=== PATIENT | female | born 1950 | race Caucasian/White ===

== ENCOUNTER 2017-03-11 01:42 | Inpatient (IN) | payer MEDICARE, MEDICAID ==
[~2017-03-11] VITALS: Ht 157.5 cm; Wt 96.2 kg
[2017-03-11 02:16] LABS: BASOPHILS # (AUTO) 0.06 x10^3/uL (0-0.1); BASOPHILS % (AUTO) 1 % (0-1); EOSINOPHILS # (AUTO) 0.52 x10^3/uL (0-0.4); EOSINOPHILS % (AUTO) 6 % (1-7); LYMPHOCYTES % (AUTO) 45 % (22-44); MD NO; MEAN CORPUSCULAR HEMOGLOBIN 29.7 pg (27.0-34.8); MEAN CORPUSCULAR HGB CONC 33.5 g/dL (32.4-35.8); MEAN CORPUSCULAR VOLUME 88.7 fL (80-100); MEAN PLATELET VOLUME 10.5 fL (7.4-10.4); MONOCYTES # (AUTO) 0.68 x10^3/uL (0.2-0.8); MONOCYTES % (AUTO) 8 % (2-9); NEUTROPHILS # (AUTO) 3.71 x10^3/uL (1.8-6.8); NEUTROPHILS % (AUTO) 41 % (42-75); PLATELET COUNT 176 x10^3/uL (130-400); RED BLOOD COUNT 3.91 x10^6/uL (3.82-5.3); RED CELL DISTRIBUTION WIDTH 13.4 % (9.6-15.2)
[2017-03-11 02:25] LABS: ALANINE AMINOTRANSFERASE 25 U/L (12-78); ALBUMIN 3.5 g/dL (3.4-5.0); ANION GAP 10 mmol/L (5-15); CALCIUM 8.2 mg/dL (8.5-10.1); CHLORIDE 108 mmol/L (98-107); CREATININE 0.82 mg/dL (0.55-1.02)
[2017-03-11 02:29] LABS: ALKALINE PHOSPHATASE 80 U/L (45-117); BILIRUBIN,TOTAL 0.4 mg/dL (0.2-1.0); TOTAL PROTEIN 7.2 g/dL (6.4-8.2); TROPONIN I < 0.015 ng/mL (0.000-0.045)
[2017-03-11] MEDS ORDERED: LEVO200T5 PO (03:42)
[2017-03-11 04:28] VITALS: BP 133/81
[2017-03-11] MEDS ORDERED: SIMV40TA3 PO (04:47)
[2017-03-11] MEDS ORDERED: MELA1TAB PO (04:47)
[2017-03-11] MEDS ORDERED: LISI1TAB3 PO (04:47)
[2017-03-11] MEDS ORDERED: CHRO1TAB6 PO (04:47)
[2017-03-11] MEDS ORDERED: VALE100C PO (04:47)
[2017-03-11 04:56] VITALS: BP 133/81
[2017-03-11 07:11] VITALS: BP 109/69
[2017-03-11] MEDS ORDERED: POLYETHYLENE GLYCOL 17 GM PACKET PO PRN (07:30)
[2017-03-11] MEDS ORDERED: ENALAPRILAT 1.25 MG/ML, 2ML IVPush PRN (07:30)
[2017-03-11] MEDS ORDERED: ACETAMINOPHEN 325 MG TABLET PO PRN (07:30)
[2017-03-11] MEDS ORDERED: DOXYCYCLINE 100 MG in DEXTROSE 5% 250 ML IV SCH (07:30)
[2017-03-11] MEDS ORDERED: DOCUSATE 100 MG CAPSULE PO PRN (07:30)
[2017-03-11] MEDS ORDERED: BISACODYL 10 MG SUPP PR PRN (07:30)
[2017-03-11] MEDS ORDERED: ONDANSETRON 2MG/ML, 2ML IVPush PRN (07:30)
[2017-03-11 08:35] VITALS: BP 118/79
[2017-03-11] MEDS: CEFTRIAXONE PMX 1GM/50ML 50 ML IV SCH (08:51)
[2017-03-11] MEDS: LISINOPRIL 10 MG TABLET PO SCH (08:52)
[2017-03-11] MEDS: GUAIFENESIN ER 600 MG TABLET PO SCH ×2 (08:52→21:53)
[2017-03-11] MEDS: LEVOTHYROXINE 200 MCG TABLET PO SCH (08:52)
[2017-03-11] MEDS: HYDROCHLOROTHIAZIDE 12.5 MG CAPSULE PO SCH (08:52)
[2017-03-11] MEDS: SIMVASTATIN 40 MG TABLET PO SCH (08:52)
[2017-03-11 08:53] LABS: TROPONIN I < 0.015 ng/mL (0.000-0.045)
[2017-03-11] MEDS: SODIUM CHLORIDE 0.9% 1,000 ML IV SCH ×2 (08:53→17:13)
[2017-03-11 13:06] VITALS: BP 101/61
[2017-03-11 14:43] LABS: TROPONIN I < 0.015 ng/mL (0.000-0.045)
[2017-03-11 18:40] VITALS: BP 92/56
[2017-03-11 21:33] LABS: MICROSCOPIC NOT IND
[2017-03-11 21:39] LABS: CULTURE INDICATED? NO
[2017-03-11 21:47] LABS: AMPHETAMINE SCREEN, URINE Negative (Negative); BARBITURATE SCREEN, URINE Negative (Negative); BENZODIAZEPINE SCREEN, URINE Negative (Negative); CANNABINOID SCREEN, URINE Negative (Negative); COCAINE SCREEN, URINE Negative (Negative); METHADONE SCREEN, URINE Negative (Negative); OPIATE SCREEN, URINE Positive (Negative)
[2017-03-11] MEDS: DOXYCYCLINE 100MG TABLET PO SCH (21:53)
[2017-03-12 02:10] VITALS: BP 108/64
[2017-03-12 05:26] LABS: BASOPHILS # (AUTO) 0.07 x10^3/uL (0-0.1); BASOPHILS % (AUTO) 1 % (0-1); EOSINOPHILS # (AUTO) 0.39 x10^3/uL (0-0.4); EOSINOPHILS % (AUTO) 5 % (1-7); LYMPHOCYTES # (AUTO) 3.17 x10^3/uL (1-3.4); LYMPHOCYTES % (AUTO) 40 % (22-44); MD NO; MEAN CORPUSCULAR HEMOGLOBIN 29.7 pg (27.0-34.8); MEAN CORPUSCULAR HGB CONC 33.4 g/dL (32.4-35.8); MEAN CORPUSCULAR VOLUME 88.7 fL (80-100); MEAN PLATELET VOLUME 10.6 fL (7.4-10.4); MONOCYTES # (AUTO) 0.72 x10^3/uL (0.2-0.8); MONOCYTES % (AUTO) 9 % (2-9); NEUTROPHILS # (AUTO) 3.56 x10^3/uL (1.8-6.8); NEUTROPHILS % (AUTO) 45 % (42-75); PLATELET COUNT 178 x10^3/uL (130-400); RED BLOOD COUNT 3.97 x10^6/uL (3.82-5.3); RED CELL DISTRIBUTION WIDTH 13.6 % (9.6-15.2)
[2017-03-12 05:39] LABS: ANION GAP 7 mmol/L (5-15); CHLORIDE 109 mmol/L (98-107)
[2017-03-12 05:51] LABS: CHOL/HDL RATIO 4.6; CHOLESTEROL, TOTAL 198 mg/dL (140-239); HDL CHOL % 22 % (28-40); HDL CHOLESTEROL (DIRECT) 43 mg/dL (40-60); LDL CHOLESTEROL,CALCULATED 100 mg/dL (54-169); LDL/HDL RATIO 2.3 (0.5-3.0); TRIGLYCERIDES 277 mg/dL (50-200); VLDL CHOLESTEROL 55 mg/dL (0-25)
[2017-03-12 06:32] VITALS: BP 125/77
[2017-03-12] MEDS: CEFTRIAXONE PMX 1GM/50ML 50 ML IV SCH (08:37)
[2017-03-12] MEDS: GUAIFENESIN ER 600 MG TABLET PO SCH ×2 (10:17→21:35)
[2017-03-12] MEDS: HYDROCHLOROTHIAZIDE 12.5 MG CAPSULE PO SCH (10:17)
[2017-03-12] MEDS: SIMVASTATIN 40 MG TABLET PO SCH (10:18)
[2017-03-12] MEDS: DOXYCYCLINE 100MG TABLET PO SCH ×2 (10:18→21:35)
[2017-03-12] MEDS: LEVOTHYROXINE 200 MCG TABLET PO SCH (10:18)
[2017-03-12] MEDS: LISINOPRIL 10 MG TABLET PO SCH (10:18)
[2017-03-12 14:12] VITALS: BP_SYST 101; BP_SYST 83; BP_DIAS 50; BP_DIAS 54
[2017-03-12] MEDS ORDERED: DIPHENHYDRAMINE 25 MG CAPSULE PO PRN (21:00)
[2017-03-12 21:53] VITALS: BP 99/61
[2017-03-13 02:12] VITALS: BP 128/80
[2017-03-13 04:43] LABS: BASOPHILS % (AUTO) 1 % (0-1); EOSINOPHILS % (AUTO) 6 % (1-7); LYMPHOCYTES # (AUTO) 3.07 x10^3/uL (1-3.4); LYMPHOCYTES % (AUTO) 37 % (22-44); MEAN CORPUSCULAR HEMOGLOBIN 29.7 pg (27.0-34.8); MEAN CORPUSCULAR HGB CONC 33.4 g/dL (32.4-35.8); MEAN CORPUSCULAR VOLUME 88.9 fL (80-100); MEAN PLATELET VOLUME 10.4 fL (7.4-10.4); MONOCYTES % (AUTO) 9 % (2-9); NEUTROPHILS # (AUTO) 4.02 x10^3/uL (1.8-6.8); NEUTROPHILS % (AUTO) 48 % (42-75); PLATELET COUNT 203 x10^3/uL (130-400); RED BLOOD COUNT 4.32 x10^6/uL (3.82-5.3); RED CELL DISTRIBUTION WIDTH 13.4 % (9.6-15.2)
[2017-03-13 04:44] LABS: BASOPHILS # (AUTO) 0.08 x10^3/uL (0-0.1); EOSINOPHILS # (AUTO) 0.46 x10^3/uL (0-0.4); MD NO; MONOCYTES # (AUTO) 0.71 x10^3/uL (0.2-0.8)
[2017-03-13 04:56] LABS: ANION GAP 9 mmol/L (5-15); CHLORIDE 106 mmol/L (98-107); CREATININE 0.76 mg/dL (0.55-1.02)
[2017-03-13 06:43] VITALS: BP 103/69
[2017-03-13] MEDS: CEFTRIAXONE PMX 1GM/50ML 50 ML IV SCH (08:00)
[2017-03-13] MEDS: HYDROCHLOROTHIAZIDE 12.5 MG CAPSULE PO SCH (08:01)
[2017-03-13] MEDS: DOXYCYCLINE 100MG TABLET PO SCH (08:01)
[2017-03-13] MEDS: GUAIFENESIN ER 600 MG TABLET PO SCH (08:01)
[2017-03-13] MEDS: LEVOTHYROXINE 200 MCG TABLET PO SCH (08:01)
[2017-03-13] MEDS: LISINOPRIL 10 MG TABLET PO SCH (08:01)
[2017-03-13] MEDS: SIMVASTATIN 40 MG TABLET PO SCH (08:03)
[2017-03-13] MEDS ORDERED: DIPHENHYDRAMINE 50 MG/ML, 1ML ONE (10:09)
[2017-03-13] MEDS ORDERED: DIPHENHYDRAMINE 50 MG/ML, 1ML IVPush ONE (10:30)
[2017-03-13] MEDS ORDERED: LEVO750T26 PO (12:05)
== END 2017-03-13 17:43 | disposition home or self-care (01) | DRG 304 ==
LOC: ED 03:19 → EDIP 03:30 → 4WST 04:31
PROVIDERS: ADMIT Internal Medicine; ATTEND Internal Medicine
DX: I11.9 Hypertensive heart disease without heart failure (principal); G93.40 Encephalopathy, unspecified; E87.2 Acidosis; I95.9 Hypotension, unspecified; I30.9 Acute pericarditis, unspecified; J20.9 Acute bronchitis, unspecified; D64.9 Anemia, unspecified; E11.9 Type 2 diabetes mellitus without complications; B34.9 Viral infection, unspecified; E03.9 Hypothyroidism, unspecified; J06.9 Acute upper respiratory infection, unspecified; E78.5 Hyperlipidemia, unspecified; J45.909 Unspecified asthma, uncomplicated; R09.02 Hypoxemia; Z79.84 Long term (current) use of oral hypoglycemic drugs; Z83.3 Family history of diabetes mellitus; Z88.0 Allergy status to penicillin; I35.8 Other nonrheumatic aortic valve disorders; R07.2 Precordial pain
CPT/HCPCS: 36415; 70450; 71045; 80048; 80053; 80061; 80307; 81003; 82140; 82607; 82962; 83880; 84439; 84443; 84484; 85025; 93005; 93306; 99285; J0696; J7060; J1200; J7030; Q0163